=== PATIENT | female | born 1980 | race Caucasian/White ===

== ENCOUNTER 2020-07-28 09:17 | Outpatient (REF) | payer MEDICAID, SELFPAY ==
[2020-07-28 10:12] LABS: MANUAL DIFF FLAG NO
[2020-07-28 10:15] LABS: Appearance Urine HAZY; Color Urine YELLOW; Glucose Urine UA NEG (NEG); Leukocyte Esterase Urine NEG (NEG); Nitrite Urine NEG (NEG); Specific Gravity - Urine >= 1.030 (1.005-1.025); Urine Blood NEG (NEG); Urine Ketones NEG (NEG); Urine Protein NEG (NEG-TRACE)
[2020-07-28 10:15] LABS: Basophils Absolute Auto 0.1 X10*3/uL (0.0-0.2); Basophils Percent Auto 0.8 % (0-2); Eosinophils Absolute Auto 0.3 X10*3/uL (0.0-0.4); Hematocrit 42.7 % (37-47); Hemoglobin 13.5 g/dl (12.0-16.0); Imm Gran Abs Auto 0.04 X10*3/uL (0.00-0.03); Imm Gran Pct Auto 0.4 % (0.0-0.4); Lymphocytes Absolute Auto 2.8 X10*3/uL (1.2-4.9); Lymphocytes Percent Auto 30.8 % (20-40); Mean Corpuscular HGB Conc 31.6 g/dl (31.0-35.0); Mean Corpuscular Hemoglobin 27.7 pg (27.0-33.0); Mean Corpuscular Volume 87.5 fL (80-98); Mean Platelet Volume 10.7 fL (9.4-12.3); Monocytes Absolute Auto 0.6 X10*3/uL (0.1-1.2); Monocytes Percent Auto 6.7 % (2-11); Neutrophils Absolute Auto 5.2 X10*3/uL (2.0-8.3); Neutrophils Percent Auto 58.3 % (45-73); Platelet Count 330 X10*3/uL (160-400); Red Blood Count 4.88 X10*6/uL (4.20-5.50); Red Cell Distribution Width 12.8 % (11.0-16.0)
[2020-07-28 10:34] LABS: Alanine Aminotransferase 16 U/L (0-31); Albumin Level 4.5 g/dL (3.5-5.0); Alkaline Phosphatase 68 U/L (39-117); Anion Gap 14 (12-20); Aspartate Amino Transferase 15 U/L (5-31); Bilirubin Total 0.4 mg/dL (0.0-1.0); Blood Urea Nitrogen 13 mg/dL (9-16); C Reactive Protein 1.47 mg/dL (< or = 0.50); Calcium 8.9 mg/dL (8.4-10.2); Carbon Dioxide 26 mmol/L (22-29); Chloride 104 mmol/L (96-108); Estimated Glomerular Filt Rate > 60; Glucose Random 94 mg/dL (60-115); Potassium 4.4 mmol/l (3.3-5.1); Sodium 140 mmol/L (135-145); Total Protein 7.4 g/dL (6.5-8.0)
[2020-07-28 10:54] LABS: Erythrocyte Sedimentation Rate 11 MM/HR (0-20)
[2020-07-29 11:37] LABS: Complement C3 151 mg/dL (83-193)
[2020-07-29 13:36] LABS: Anti DNA DS Antibody 1 IU/mL
== END 2020-07-28 09:18 | disposition home or self-care (01) ==
LOC: HO.LAB 09:17
PROVIDERS: PCP Family Medicine; Visit Provider Student in an Organized Health Care Education/Training Program
DX: R20.0 Anesthesia of skin (principal); M32.8 Other forms of systemic lupus erythematosus
CPT/HCPCS: 36415; 80053; 81003; 85025; 85652; 86140; 86160; 86225

== ENCOUNTER → 2020-08-12 10:54 | Outpatient (BNVA) | payer MEDICAID, SELFPAY | PROVIDERS: PCP Family Medicine; Referring Provider Family Medicine; Visit Provider Student in an Organized Health Care Education/Training Program | DX: M32.9 Systemic lupus erythematosus, unspecified (principal); M67.912 Unspecified disorder of synovium and tendon, left shoulder; M70.72 Other bursitis of hip, left hip; Z79.899 Other long term (current) drug therapy | CPT/HCPCS: 99212 ==

== ENCOUNTER 2020-11-11 06:50 | Outpatient (REF) | payer MEDICAID, SELFPAY ==
[2020-11-11 07:34] LABS: MANUAL DIFF FLAG NO
[2020-11-11 07:35] LABS: Basophils Absolute Auto 0.1 X10*3/uL (0.0-0.2); Basophils Percent Auto 0.9 % (0-2); Eosinophils Absolute Auto 0.3 X10*3/uL (0.0-0.4); Eosinophils Percent Auto 2.6 % (0-4); Hematocrit 40.8 % (37-47); Imm Gran Abs Auto 0.04 X10*3/uL (0.00-0.03); Imm Gran Pct Auto 0.4 % (0.0-0.4); Lymphocytes Absolute Auto 3.1 X10*3/uL (1.2-4.9); Lymphocytes Percent Auto 30.8 % (20-40); Mean Corpuscular HGB Conc 31.9 g/dl (31.0-35.0); Mean Corpuscular Hemoglobin 27.9 pg (27.0-33.0); Mean Corpuscular Volume 87.6 fL (80-98); Mean Platelet Volume 10.4 fL (9.4-12.3); Monocytes Absolute Auto 0.7 X10*3/uL (0.1-1.2); Monocytes Percent Auto 7.2 % (2-11); Neutrophils Absolute Auto 5.9 X10*3/uL (2.0-8.3); Neutrophils Percent Auto 58.1 % (45-73); Platelet Count 313 X10*3/uL (160-400); Red Blood Count 4.66 X10*6/uL (4.20-5.50); Red Cell Distribution Width 12.9 % (11.0-16.0); White Blood Count 10.2 X10*3/uL (4.8-10.8)
[2020-11-11 07:56] LABS: Glucose Urine UA NEG (NEG); Leukocyte Esterase Urine NEG (NEG); Nitrite Urine NEG (NEG); Specific Gravity - Urine >= 1.030 (1.005-1.025); Urine Blood NEG (NEG); Urine Ketones NEG (NEG); Urine Protein NEG (NEG-TRACE)
[2020-11-11 08:03] LABS: Alanine Aminotransferase 18 U/L (0-31); Albumin Level 4.1 g/dL (3.5-5.0); Alkaline Phosphatase 69 U/L (39-117); Anion Gap 12 (12-20); Aspartate Amino Transferase 14 U/L (5-31); Bilirubin Total 0.4 mg/dL (0.0-1.0); Blood Urea Nitrogen 13 mg/dL (9-16); C Reactive Protein 1.26 mg/dL (< or = 0.50); Carbon Dioxide 25 mmol/L (22-29); Chloride 106 mmol/L (96-108); Estimated Glomerular Filt Rate > 60; Glucose Random 84 mg/dL (60-115); Potassium 4.1 mmol/L (3.3-5.1); Sodium 139 mmol/L (135-145); Total Protein 6.8 g/dL (6.5-8.0)
[2020-11-11 08:20] LABS: Appearance Urine CLEAR; Color Urine YELLOW
[2020-11-11 08:34] LABS: Erythrocyte Sedimentation Rate 12 MM/HR (0-20)
[2020-11-11 09:09] LABS: RBC Urine 0-2 /HPF (0); Squamous Epithelial Cell Urine 1+ /LPF; WBC Urine 0-2 /HPF (0-4)
[2020-11-11 09:10] LABS: Mucus Urine 1+ /LPF
[2020-11-12 12:26] LABS: Anti DNA DS Antibody 1 IU/mL
[2020-11-13 14:12] LABS: Complement C3 128 mg/dL (83-193)
== END 2020-11-11 06:51 | disposition home or self-care (01) ==
LOC: HO.LAB 06:50
PROVIDERS: PCP Family Medicine; Visit Provider Student in an Organized Health Care Education/Training Program
DX: M32.9 Systemic lupus erythematosus, unspecified (principal)
CPT/HCPCS: 36415; 80053; 81001; 85025; 85652; 86140; 86160; 86225

== ENCOUNTER 2020-11-12 13:53 | Outpatient (REF) | payer MEDICAID, SELFPAY ==
--- NOTE | ~2020-11-12 | XR_ITS ---
EXAMINATION: CR X-RAY HAND BILATERAL 3 VIEW CLINICAL INFORMATION: Hand pain. COMPARISON: None TECHNIQUE: 3 views each of the bilateral hands were obtained. FINDINGS: There is no acute fracture or dislocation. The joint spaces are unremarkable. The carpal bones are normally aligned. The distal radius and ulna are intact. The soft tissues are unremarkable. XR/XR hand RT min 3V IMPRESSION: Unremarkable bilateral hands.
--- NOTE | ~2020-11-12 | XR_ITS ---
EXAMINATION: CR X-RAY HAND BILATERAL 3 VIEW CLINICAL INFORMATION: Hand pain. COMPARISON: None TECHNIQUE: 3 views each of the bilateral hands were obtained. FINDINGS: There is no acute fracture or dislocation. The joint spaces are unremarkable. The carpal bones are normally aligned. The distal radius and ulna are intact. The soft tissues are unremarkable. XR/XR hand LT min 3V IMPRESSION: Unremarkable bilateral hands.
== END 2020-11-12 13:54 | disposition home or self-care (01) ==
LOC: HO.XRAY 13:53
PROVIDERS: PCP Family Medicine; Visit Provider Student in an Organized Health Care Education/Training Program
DX: M32.9 Systemic lupus erythematosus, unspecified (principal); M79.641 Pain in right hand; M79.642 Pain in left hand; Z79.899 Other long term (current) drug therapy
CPT/HCPCS: 73130; 99212

== ENCOUNTER 2021-03-18 06:19 | Outpatient (REF) | payer MEDICAID, SELFPAY ==
[2021-03-18 07:04] LABS: MANUAL DIFF FLAG NO
[2021-03-18 07:12] LABS: Basophils Absolute Auto 0.1 X10*3/uL (0.0-0.2); Basophils Percent Auto 1.2 % (0-2); Eosinophils Absolute Auto 0.4 X10*3/uL (0.0-0.4); Eosinophils Percent Auto 3.2 % (0-4); Hematocrit 40.7 % (37-47); Hemoglobin 12.9 g/dl (12.0-16.0); Imm Gran Abs Auto 0.04 X10*3/uL (0.00-0.03); Imm Gran Pct Auto 0.4 % (0.0-0.4); Lymphocytes Absolute Auto 4.2 X10*3/uL (1.2-4.9); Lymphocytes Percent Auto 37.4 % (20-40); Mean Corpuscular HGB Conc 31.7 g/dl (31.0-35.0); Mean Corpuscular Hemoglobin 27.5 pg (27.0-33.0); Mean Corpuscular Volume 86.8 fL (80-98); Mean Platelet Volume 10.7 fL (9.4-12.3); Monocytes Absolute Auto 0.8 X10*3/uL (0.1-1.2); Neutrophils Absolute Auto 5.7 X10*3/uL (2.0-8.3); Neutrophils Percent Auto 50.8 % (45-73); Platelet Count 332 X10*3/uL (160-400); Red Blood Count 4.69 X10*6/uL (4.20-5.50); White Blood Count 11.2 X10*3/uL (4.8-10.8)
[2021-03-18 07:44] LABS: Alanine Aminotransferase 13 U/L (0-31); Albumin Level 4.3 g/dL (3.5-5.0); Alkaline Phosphatase 69 U/L (39-117); Anion Gap 14 (12-20); Aspartate Amino Transferase 13 U/L (5-31); Bilirubin Total 0.4 mg/dL (0.0-1.0); Blood Urea Nitrogen 12 mg/dL (9-16); C Reactive Protein 1.05 mg/dL (< or = 0.50); Calcium 9.1 mg/dL (8.4-10.2); Carbon Dioxide 18 mmol/L (22-29); Chloride 110 mmol/L (96-108); Estimated Glomerular Filt Rate > 60; Glucose Random 88 mg/dL (60-115); Potassium 3.9 mmol/L (3.3-5.1); Sodium 138 mmol/L (135-145); Total Protein 6.8 g/dL (6.5-8.0)
[2021-03-18 08:19] LABS: Erythrocyte Sedimentation Rate 7 MM/HR (0-20)
[2021-03-18 08:24] LABS: Glucose Urine UA NEG (NEG); Leukocyte Esterase Urine NEG (NEG); Nitrite Urine NEG (NEG); Urine Blood NEG (NEG); Urine Ketones NEG (NEG); Urine Protein NEG (NEG-TRACE)
[2021-03-18 08:25] LABS: Appearance Urine CLEAR; Color Urine YELLOW
[2021-03-18 08:33] LABS: RBC Urine 0 /HPF (0); Squamous Epithelial Cell Urine TRACE /LPF; WBC Urine 0 /HPF (0-4)
[2021-03-19 11:46] LABS: Complement C3 143 mg/dL (83-193)
[2021-03-19 13:26] LABS: Anti DNA DS Antibody 1 IU/mL
== END 2021-03-18 06:20 | disposition home or self-care (01) ==
LOC: HO.LAB 06:19
PROVIDERS: PCP Family Medicine; Visit Provider Student in an Organized Health Care Education/Training Program
DX: M32.9 Systemic lupus erythematosus, unspecified (principal)
CPT/HCPCS: 36415; 80053; 81001; 85025; 85652; 86140; 86160; 86225

== ENCOUNTER → 2021-03-24 10:32 | Outpatient (BNVA) | payer MEDICAID, SELFPAY | PROVIDERS: PCP Family Medicine; Visit Provider Student in an Organized Health Care Education/Training Program | DX: M32.9 Systemic lupus erythematosus, unspecified (principal); M79.89 Other specified soft tissue disorders; M79.641 Pain in right hand; M79.642 Pain in left hand | CPT/HCPCS: 99212 ==

== ENCOUNTER 2021-03-24 11:11 | Outpatient (REF) | payer MEDICAID, SELFPAY ==
--- NOTE | ~2021-03-24 | US_ITS ---
EXAMINATION: US VENOUS WITH DOPPLER UPPER EXTREMITY, LEFT CLINICAL INFORMATION: Swelling, pain and bruising COMPARISON: None TECHNIQUE: Ultrasound of the upper extremity is performed using compression sonography and color and pulse Doppler flow with assessment of augmentation of flow. There is also imaging and Doppler assessment of the jugular and subclavian veins. Spectral analysis with color-flow imaging is performed. FINDINGS: Respiratory variation, normal compression, and augmented flow are noted throughout the upper extremity including the axillary, brachial, cubital, and radial and ulnar veins. There is normal flow in the internal jugular and subclavian veins. There is no visible deep or superficial thrombophlebitis. If the patient's symptoms progress, a followup ultrasound in 5 -7 days might be of value to exclude proximal propagation from a nonvisualized distal arm vein. US/US venous duplex UE LT IMPRESSION: No DVT demonstrated in the left upper extremity.
== END 2021-03-24 11:12 | disposition home or self-care (01) ==
LOC: HO.US 11:11
PROVIDERS: PCP Family Medicine; Visit Provider Student in an Organized Health Care Education/Training Program
DX: R60.0 Localized edema (principal); M79.89 Other specified soft tissue disorders
CPT/HCPCS: 93971